=== PATIENT | male | born 1950 | race Caucasian/White ===

== ENCOUNTER 2017-10-11 08:36 | Outpatient (CLI) | payer MEDICARE, OTHER ==
--- NOTE | 2017-10-13 16:12 | PFT ---
PATIENT HISTORY: HEIGHT: WEIGHT: SMOKER: HOW LONG: PACKS PER DAY PRODUCTIVE COUGH: LUNG DISEASE: PHYSICIAN INTERPRETATION FINAL REPORT: Porcelain Enamel Laborer comments patient and good effort and cooperation FVC 3.47 (81%), FEV1 2.29 (79%), FEV1/FVC 0.64. TLC 5.77 (86%), RV 2.43 (99%). There is a reduction to the FEV1 and the FVC. The ratio is most consistent with obstructive profile. There is a significant improvement in the FVC (17%, 510 mL), and the FEV1 (22%, 420 mL) following administration of bronchodilator. Lung volumes including TLC and RV are normal. The FRC is minimally reduced. IMPRESSION: These pulmonary function studies are most consistent with mild obstructive lung disease with significant reversibility. Porcelain Enamel Laborer: SRINI Supervisor Core Drilling: SRINI LENTZ
== END 2017-10-11 08:37 | disposition home or self-care (01) ==
LOC: CP 08:36
PROVIDERS: ATTEND Family Medicine
DX: R06.2 Wheezing (principal)
CPT/HCPCS: 94060; 94727

== ENCOUNTER 2018-08-27 17:30 | Observation (INO) | payer MEDICARE, OTHER ==
[2018-08-27] MEDS ORDERED: methylPREDNISolone Sod Succ/PF 125 MG/2 ML VIAL ONE (17:44)
[2018-08-27] MEDS ORDERED: Water For Inject, Bacteriostat 30 ML ONE (17:45)
[2018-08-27 17:56] LABS: #Basophils 0.2 thou/uL (0.0-0.2); #Eosinphils 1.3 thou/uL (0.0-0.7); #Lymphocytes 2.3 thou/uL (1.20-3.40); #Monocytes 0.8 thou/uL (0.11-0.59); #Neutrophils 8.2 thou/uL (1.40-6.50); %Basophils 1.7 % (0.0-1.0); %Eosinophils 9.9 % (0.0-10.0); %Lymphocytes 17.9 % (21.0-51.0); %Monocytes 6.2 % (0.0-10.0); %Neutrophils 64.4 % (42.0-75.0); Hemoglobin 17.1 g/dL (14.0-18.0); Mean Corpuscular HGB CONC 34.2 g/dL (32.0-36.0); Mean Corpuscular Hemoglobin 31.7 pg (27.0-31.0); Mean Corpuscular Volume 92.6 fL (78.0-98.0); Platelet Count 251 thou/uL (130-400); RBC Distribution Width 12.5 % (11.5-14.5); Red Blood Cell (RBC) Count 5.41 mill/uL (4.70-6.10); White Blood Cell (WBC) Count 12.8 thou/uL (4.8-10.8)
[2018-08-27 18:12] LABS: ALT (SGPT) 25 U/L (8-55); AST (SGOT) 23 U/L (5-34); Albumin 4.7 g/dL (3.4-4.8); Alkaline Phosphatase 77 U/L (40-150); Anion Gap 16 mmol/L (10-20); BUN (Urea Nitrogen) 15 mg/dL (8.4-25.7); Bilirubin, Total 0.6 mg/dL (0.2-1.2); Calc. Creatinine Clearance 0 mL/min (70-130); Calcium 10.2 mg/dL (7.8-10.44); Carbon Dioxide 28 mmol/L (23-31); Chloride 103 mmol/L (98-107); Estimated GFR-MDRD 75; Globulin 3.2 g/dL (2.4-3.5); Glucose 103 mg/dL (80-115); Protein, Total 7.9 g/dL (5.8-8.1); Sodium 143 mmol/L (136-145)
[2018-08-27 18:39] LABS: CKMB 12.5 ng/mL (0-6.6)
--- NOTE | 2018-08-27 19:16 | RAD ---
CHEST ONE VIEW: Indication: 68-year-old male with dyspnea and COPD. Comparison: Two view chest radiograph, 10-03-17. FINDINGS: The lungs are clear. The heart size is normal. There are stable mild vascular calcifications involvin g the aortic arch. No pleural effusion is evident. No pneumothorax is identified. No acute osseous ab normality is demonstrated. IMPRESSION: No acute cardiopulmonary abnormality. POS: [facility]
[2018-08-27 21:40] VITALS: BMI 30.6
[2018-08-27] MEDS: methylPREDNISolone Sod Succ 40 MG VIAL IVP SCH (23:29)
[2018-08-27] MEDS ORDERED: methylPREDNISolone Acetate 40 mg/ml Vial IM SCH (23:59)
[2018-08-28] MEDS ORDERED: Acetaminophen 325 MG TAB PO PRN (00:54)
[2018-08-28] MEDS ORDERED: Ondansetron ODT 4 MG TAB PO PRN (00:54)
[2018-08-28] MEDS ORDERED: Calcium Carbonate 500 MG ChewTAB PO PRN (00:54)
[2018-08-28] MEDS ORDERED: Senokot S 8.6-50 MG TAB PO PRN (00:54)
[2018-08-28] MEDS ORDERED: Ondansetron PF 4 MG/2 ML Vial IVP PRN (00:54)
[2018-08-28] MEDS: Azithromycin 500 MG in Sodium Chloride 0.9% 250 ML 250 ML IVPB SCH (01:24)
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
[2018-08-28] MEDS: methylPREDNISolone Sod Succ 40 MG VIAL IVP SCH ×3 (05:11→17:48)
[2018-08-28] MEDS ORDERED: Diabetic Tussin 200 MG/10 ML UDCUP PO PRN (06:44)
[2018-08-28] MEDS: Famotidine 20 MG TAB PO SCH ×2 (08:59→20:49)
[2018-08-28] MEDS: guaiFENesin ER 600 MG TAB PO SCH ×2 (08:59→20:48)
[2018-08-28] MEDS: Aspirin 81 mg Enteric Coated Tablet PO SCH (09:00)
[2018-08-28] MEDS: Amlodipine 5 mg/Benazepril 10 mg CAP PO SCH (09:00)
[2018-08-28] MEDS: Mometasone/Formoterol 120 PUFF INHALER INH SCH (18:33)
[2018-08-28] MEDS ORDERED: Atorvastatin Calcium 20 MG TAB PO SCH (21:00)
[2018-08-29] MEDS: methylPREDNISolone Sod Succ 40 MG VIAL IVP SCH ×3 (00:01→12:17)
[2018-08-29] MEDS: Azithromycin 500 MG in Sodium Chloride 0.9% 250 ML 250 ML IVPB SCH (00:04)
[2018-08-29] MEDS: Mometasone/Formoterol 120 PUFF INHALER INH SCH (07:33)
[2018-08-29] MEDS: guaiFENesin ER 600 MG TAB PO SCH (08:21)
[2018-08-29] MEDS: Famotidine 20 MG TAB PO SCH (08:22)
[2018-08-29] MEDS: Aspirin 81 mg Enteric Coated Tablet PO SCH (08:22)
[2018-08-29] MEDS: Amlodipine 5 mg/Benazepril 10 mg CAP PO SCH (08:22)
[2018-08-29 15:49] VITALS: BP 137/71; TEMP 98.3
--- NOTE | 2018-08-30 05:02 | DIS ---
DATE OF ADMISSION: 08/27/2018 DATE OF DISCHARGE: 08/29/2018 ALLERGIES: NO KNOWN DRUG ALLERGIES. CHIEF COMPLAINT: Shortness of breath. FINAL DIAGNOSES: 1. Acute chronic obstructive pulmonary disease exacerbation, resolved. 2. Hypoxemia, improved. 3. Mild chronic obstructive pulmonary disease, diagnosed in September 2017. 4. Hypertension. 5. Hyperlipidemia. LABORATORY RESULTS: On 08/27/2018, white blood cell count 12.8, hemoglobin 17.1, hematocrit 50.1, platelet count 251. D-dimer less than 0.27. Sodium 143, potassium 4.0, anion gap 16, BUN 15, creatinine 0.99. GFR 75. Liver function tests within normal limits. Serial troponin 0.052 and 0.025 respectively. IMAGING RESULTS: Chest x-ray showed clear lung michaels. No acute cardiopulmonary abnormality. CONSULTATIONS: Dr. Andrade, who is a close family friend, was then informed of his admission. HOSPITAL COURSE: The patient is a pleasant 68-year-old male with past medical history significant for mild COPD which has been well maintained on his maintenance Combivent inhaler that he uses twice a day as well as his rescue inhaler, hypertension, and hyperlipidemia, who presented to the hospital with complaints of worsening shortness of breath, wheezing and cough. Symptoms initially began two weeks prior to his admission with what the patient describes as an upper respiratory tract infection. The patient states his cough and symptoms did improve, however, over the past 4 days prior to admission, his symptoms got progressively worse. He had a nonproductive cough, no fever; but when the patient was trying to meet his for lunch, he got to the front door, and felt that he absolutely could not breathe. He presented to the emergency room for further workup and treatment. His O2 saturation on arrival was 80% on room air. The patient was given DuoNebs along with IV Solu-Medrol, IV azithromycin, with significant improvement in his symptoms over the past 2 days. His cough has improved. He does report some mild dyspnea on exertion, however, denies any further wheezing. He denies any chest pain, nausea, or vomiting today. He denies any other complaints. The patient did desat to 88% with ambulation, and so supplemental home O2 has been arranged. His Combivent inhaler was exchanged for Dulera. PHYSICAL EXAMINATION: VITAL SIGNS: Blood pressure 137/71. The patient is afebrile, 98.3 degrees Fahrenheit. Pulse is 94. O2 saturation 95% on room air at rest, however, the patient did desaturate to 88% with ambulation. GENERAL: This is a well-appearing, mildly obese male, in no acute distress. He is breathing easily. HEENT: Atraumatic, normocephalic. Eye movement intact. Mucous membranes are moist. NECK: Supple. No lymphadenopathy. No carotid bruits. RESPIRATORY: Regular respiratory rate and pattern. No wheeze or rhonchi detected today. The patient does have overall decreased vesicular breath sounds. CARDIOVASCULAR: S1, S2. Regular rate and rhythm. No appreciable murmurs, rubs or gallops. GI: Soft, nontender. Positive bowel sounds. PERIPHERAL VASCULAR: No edema. +2 DP pulses bilaterally. MUSCULOSKELETAL: No joint effusion or swelling. NEUROLOGIC: Nonfocal. Cranial nerves 2 through 12 grossly intact. CONDITION AT DISCHARGE: Stable. DISCHARGE MEDICATIONS: 1. Albuterol sulfate inhaler p.r.n. 2. Amlodipine benazepril 10/20 one capsule p.o. daily. 3. Atorvastatin 20 mg p.o. at bedtime. 4. Aspirin 81 mg daily. 5. He will continue azithromycin 250 mg tablet for the next 3 days. 6. Guaifenesin 600 mg p.o. q.12. 7. The patient was also given prescription for a nebulizer machine along with ipratropium, albuterol sulfate nebulizer vials. 8. The patient's Combivent was changed to Dulera 120 aerosol, one puff inhalation b.i.d. DISCHARGE DISPOSITION: Home. PLAN: The patient will continue supplemental oxygen as needed with exertion, and pulmonary toilet to include p.r.n. breathing treatment, expectorant, and continuation of his antibiotic. He will follow up as an outpatient with Dr. Andrade and with his primary care physician. The findings of his testing and diagnoses have been discussed with the patient at length. All questions answered. Job ID: [id number]
== END 2018-08-29 18:32 | disposition home or self-care (01) ==
LOC: SCSER 17:30 → 2SW 21:36
PROVIDERS: ADMIT Internal Medicine; ATTEND Internal Medicine
DX: J44.1 Chronic obstructive pulmonary disease with (acute) exacerbation (principal); R09.02 Hypoxemia; I12.9 Hypertensive chronic kidney disease with stage 1 through stage 4 chronic kidney disease, or unspecified chronic kidney disease; N18.2 Chronic kidney disease, stage 2 (mild); E78.5 Hyperlipidemia, unspecified; R73.02 Impaired glucose tolerance (oral); R79.89 Other specified abnormal findings of blood chemistry; E66.9 Obesity, unspecified; Z68.30 Body mass index [BMI] 30.0-30.9, adult; Z79.899 Other long term (current) drug therapy; Z87.891 Personal history of nicotine dependence
CPT/HCPCS: 71045; 80053; 82550; 82553; 84484 ×2; 85025; 85379; 94640 ×6; 94760 ×2; 96365; 96366; 96375; 96376 ×3; 99285; G0378 ×2; 36415; 96374; J0456; J1030; J2920; J2930; J7050; J7620

== ENCOUNTER 2024-02-08 16:04 | Inpatient (IN) | payer MEDICARE ==
[~2024-02-08 16:04] MED LIST: Iopamidol-370 76% 500 ML MDV (1 ML CHARGE) ONE
[2024-02-08 17:04] LABS: #Basophils 0.07 10x3/uL (0.0-0.2); %Basophils 0.5 % (0.0-1.0); %Eosinophils 1.5 % (0.0-10.0); %Lymphocytes 9.2 % (21.0-51.0); %Monocytes 8.2 % (0.0-10.0); %Neutrophils 79.8 % (42.0-75.0); Hematocrit 33.3 % (42.0-52.0); Hemoglobin 11.3 g/dL (14.0-18.0); Mean Corpuscular HGB CONC 33.9 g/dL (32.0-36.0); Mean Corpuscular Hemoglobin 31.7 pg (27.0-31.0); Mean Corpuscular Volume 93.3 fL (78.0-98.0); Mean Platelet Volume 10.4 fL (7.4-10.4); Platelet Count 150 10x3/uL (130-400); RBC Distribution Width 13.2 % (11.5-14.5); Red Blood Cell (RBC) Count 3.57 mill/uL (4.70-6.10)
[2024-02-08 17:18] LABS: INR-International Normal Ratio 1.1; PTT 37.2 sec (22.9-36.1); Prothrombin Time 14.4 sec (12.0-14.7)
[2024-02-08 17:22] LABS: ALT (SGPT) 20 U/L (8-55); AST (SGOT) 21 U/L (5-34); Albumin 3.3 g/dL (3.4-4.8); Alkaline Phosphatase 64 U/L (40-110); Anion Gap 15 mmol/L (10-20); BUN (Urea Nitrogen) 27 mg/dL (8.4-25.7); Bilirubin, Total 1.5 mg/dL (0.2-1.2); Calc. Creatinine Clearance 0 mL/min (70-130); Calcium 8.8 mg/dL (7.8-10.44); Carbon Dioxide 24 mmol/L (23-31); Chloride 101 mmol/L (98-107); Estimated GFR 92; Globulin 3.3 g/dL (2.4-3.5); Glucose 116 mg/dL (83-110); Potassium 4.4 mmol/L (3.5-5.1); Protein, Total 6.6 g/dL (5.8-8.1); Sodium 136 mmol/L (136-145)
[2024-02-08 17:24] LABS: Troponin I 0.143 ng/mL (< 0.028)
[2024-02-08] MEDS ORDERED: Heparin 5,000 UNITS/ML VIAL ONE (18:33)
[2024-02-08] MEDS ORDERED: Heparin 25,000 units/D5W 500 ML ONE (18:33)
[2024-02-08] MEDS ORDERED: Acetaminophen 325 MG TAB PO PRN (20:10)
[2024-02-08] MEDS ORDERED: Ondansetron ODT 4 MG TAB PO PRN (20:10)
[2024-02-08] MEDS ORDERED: Ondansetron PF 4 MG/2 ML Vial IVP PRN (20:10)
[2024-02-08 21:00] LABS: Hematocrit 36.1 % (42.0-52.0); Hemoglobin 11.9 g/dL (14.0-18.0); Platelet Count 148 10x3/uL (130-400)
[2024-02-08 21:39] LABS: PTT Greater than 250.0 sec (22.9-36.1)
[2024-02-08] MEDS: Heparin 25,000 units/D5W 500 ML IVPB SCH (21:41)
[2024-02-08] MEDS ORDERED: Ipratropium/Albuterol 3 ML NEB NEB PRN (22:24)
[2024-02-08] MEDS: traMADol HCl 50 MG TAB PO PRN (22:45)
[2024-02-08] MEDS: Ipratropium/Albuterol 3 ML NEB NEB SCH (22:55)
[2024-02-09 00:58] VITALS: BMI 35.9
[2024-02-09 03:46] LABS: PTT 140.7 sec (22.9-36.1)
[2024-02-09] MEDS: Mometasone 100 MCG HFA INHALER (RT USE) INH SCH (06:57)
[2024-02-09] MEDS ORDERED: Non-Formulary Item 1 EACH (Fluticasone/Umeclidin/Vilanter [Trelegy Ellipta 200-62.5-25] 1 INH SCH (09:00)
[2024-02-09] MEDS: Cholecalciferol 1,000 UNITS (25 MCG) TAB PO SCH (10:02)
[2024-02-09] MEDS: Atorvastatin Calcium 20 MG TAB PO SCH (10:03)
[2024-02-09] MEDS ORDERED: Iopamidol 370 76% 100 ML VIAL ONE (10:34)
[2024-02-09] MEDS ORDERED: Heparin 10,000 UNITS/ 10 ML VIAL ONE (10:50)
[2024-02-09] MEDS ORDERED: fentaNYL 50 mcg/mL 1 mL Vial ONE ×2 (11:41→14:28)
[2024-02-09] MEDS ORDERED: Midazolam HCl 2 mg/2 ml Vial ONE (11:41)
[2024-02-09] MEDS ORDERED: Famotidine/PF 20 mg/2ml Vial ONE (12:00)
[2024-02-09] MEDS: Activase 2 MG VIAL CATH SCH (16:03)
[2024-02-09] MEDS: Sterile Water 10 ML VIAL IVP SCH ×2 (16:03)
[2024-02-09] MEDS: Activase 2 MG VIAL FS SCH (16:03)
[2024-02-09] MEDS: Docusate 100 MG CAP PO PRN (20:03)
[2024-02-09 20:57] LABS: PTT 235.1 sec (22.9-36.1)
[2024-02-10 04:36] LABS: #Basophils 0.07 10x3/uL (0.0-0.2); %Basophils 0.6 % (0.0-1.0); %Eosinophils 3.8 % (0.0-10.0); %Lymphocytes 12.9 % (21.0-51.0); %Neutrophils 71.7 % (42.0-75.0); Hematocrit 33.2 % (42.0-52.0); Hemoglobin 10.9 g/dL (14.0-18.0); Mean Corpuscular HGB CONC 32.8 g/dL (32.0-36.0); Mean Corpuscular Hemoglobin 30.9 pg (27.0-31.0); Mean Corpuscular Volume 94.1 fL (78.0-98.0); Mean Platelet Volume 10.1 fL (7.4-10.4); Platelet Count 144 10x3/uL (130-400); RBC Distribution Width 13.2 % (11.5-14.5); Red Blood Cell (RBC) Count 3.53 mill/uL (4.70-6.10)
[2024-02-10 04:59] LABS: Anion Gap 15 mmol/L (10-20); BUN (Urea Nitrogen) 19 mg/dL (8.4-25.7); Calc. Creatinine Clearance 132 mL/min (70-130); Calcium 8.7 mg/dL (7.8-10.44); Carbon Dioxide 29 mmol/L (23-31); Chloride 101 mmol/L (98-107); Estimated GFR 94; Glucose 98 mg/dL (83-110); Potassium 4.5 mmol/L (3.5-5.1); Sodium 140 mmol/L (136-145)
[2024-02-10] MEDS: Heparin 10,000 UNITS/ 10 ML VIAL SLOW IVP SCH (08:38)
[2024-02-10 14:00] LABS: PTT 176.4 sec (22.9-36.1)
[2024-02-10] MEDS: Polyethylene Glycol 3350 17 GM Packet PO PRN (15:18)
[2024-02-10] MEDS ORDERED: Melatonin 3 MG TAB PO PRN (15:27)
[2024-02-10] MEDS ORDERED: diphenhydrAMINE 25 MG CAP PO PRN (15:27)
[2024-02-10 20:47] LABS: Hematocrit 31.8 % (42.0-52.0); Hemoglobin 10.4 g/dL (14.0-18.0); Platelet Count 149 10x3/uL (130-400)
[2024-02-11 04:44] LABS: #Basophils 0.07 10x3/uL (0.0-0.2); %Basophils 0.7 % (0.0-1.0); %Eosinophils 5.5 % (0.0-10.0); %Lymphocytes 14.4 % (21.0-51.0); %Monocytes 9.7 % (0.0-10.0); %Neutrophils 68.4 % (42.0-75.0); Hematocrit 30.9 % (42.0-52.0); Hemoglobin 10.3 g/dL (14.0-18.0); Mean Corpuscular HGB CONC 33.3 g/dL (32.0-36.0); Mean Corpuscular Hemoglobin 30.8 pg (27.0-31.0); Mean Corpuscular Volume 92.5 fL (78.0-98.0); Mean Platelet Volume 10.1 fL (7.4-10.4); Platelet Count 147 10x3/uL (130-400); Red Blood Cell (RBC) Count 3.34 mill/uL (4.70-6.10)
[2024-02-11 05:10] LABS: Anion Gap 10 mmol/L (10-20); BUN (Urea Nitrogen) 14 mg/dL (8.4-25.7); Calc. Creatinine Clearance 141 mL/min (70-130); Calcium 8.5 mg/dL (7.8-10.44); Carbon Dioxide 31 mmol/L (23-31); Chloride 100 mmol/L (98-107); Estimated GFR 96; Glucose 116 mg/dL (83-110); Potassium 3.9 mmol/L (3.5-5.1); Sodium 137 mmol/L (136-145)
[2024-02-11] MEDS: Magnesium Citrate 300 ML BOT PO SCH (13:10)
[2024-02-11 16:13] VITALS: BP 130/63; TEMP 98.5
[2024-02-11] MEDS: Acetaminophen/Codeine 30-300mg Tablet PO PRN (19:56)
== END 2024-02-11 20:15 | disposition short-term general hospital (02) | DRG 272 ==
LOC: ERS 16:04 → 2NO 18:30
PROVIDERS: ADMIT Family Medicine; ATTEND Internal Medicine
PROC: 06CF3ZZ Extirpation of Matter from Right External Iliac Vein, Percutaneous Approach (ICD-10-PCS; principal; 2024-02-09)
PROC: 06CM3ZZ Extirpation of Matter from Right Femoral Vein, Percutaneous Approach (ICD-10-PCS; 2024-02-09)
PROC: 06C Lower Veins, Extirpation (ICD-10-PCS; 2024-02-09)
PROC: B51D1ZA Fluoroscopy of Bilateral Lower Extremity Veins using Low Osmolar Contrast, Guidance (ICD-10-PCS; 2024-02-09)
DX: I82.421 Acute embolism and thrombosis of right iliac vein (principal); I82.441 Acute embolism and thrombosis of right tibial vein; I82.411 Acute embolism and thrombosis of right femoral vein; I82.431 Acute embolism and thrombosis of right popliteal vein; J44.9 Chronic obstructive pulmonary disease, unspecified; I10 Essential (primary) hypertension; E78.5 Hyperlipidemia, unspecified; I35.0 Nonrheumatic aortic (valve) stenosis; F17.210 Nicotine dependence, cigarettes, uncomplicated; Z79.899 Other long term (current) drug therapy; Z98.890 Other specified postprocedural states; Z95.2 Presence of prosthetic heart valve
CPT/HCPCS: 36005; 36011; 36012; 36415; 37187; 37212; 37248; 37249; 71045; 74177; 75822; 75825; 76937; 80048; 80053; 84484; 85025; 85347; 85610; 85730; 93005; 93978; 94640; 96374; 99152; 99153; C1725; C1760; C1769; C1887; C1894; J1644; J2250; J3010; J3490; J7620; Q9967

== ENCOUNTER 2024-04-03 14:30 | Emergency (ER) | payer MEDICARE ==
[2024-04-03 15:03] LABS: #Basophils 0.09 10x3/uL (0.0-0.2); %Eosinophils 4.6 % (0.0-10.0); %Lymphocytes 22.3 % (21.0-51.0); %Neutrophils 61.8 % (42.0-75.0); Hematocrit 38.6 % (42.0-52.0); Hemoglobin 12.5 g/dL (14.0-18.0); Mean Corpuscular HGB CONC 32.4 g/dL (32.0-36.0); Mean Corpuscular Hemoglobin 28.4 pg (27.0-31.0); Mean Corpuscular Volume 87.7 fL (78.0-98.0); Mean Platelet Volume 10.4 fL (7.4-10.4); Platelet Count 153 10x3/uL (130-400); RBC Distribution Width 14.3 % (11.5-14.5)
[2024-04-03 15:20] LABS: ALT (SGPT) 15 U/L (8-55); AST (SGOT) 15 U/L (5-34); Albumin 3.8 g/dL (3.4-4.8); Alkaline Phosphatase 82 U/L (40-110); Anion Gap 12 mmol/L (10-20); BUN (Urea Nitrogen) 19 mg/dL (8.4-25.7); Bilirubin, Total 0.3 mg/dL (0.2-1.2); Calc. Creatinine Clearance 0 mL/min (70-130); Calcium 9.3 mg/dL (7.8-10.44); Carbon Dioxide 25 mmol/L (23-31); Chloride 107 mmol/L (98-107); Estimated GFR 91; Globulin 3.1 g/dL (2.4-3.5); Glucose 91 mg/dL (83-110); Potassium 3.8 mmol/L (3.5-5.1); Protein, Total 6.9 g/dL (5.8-8.1); Sodium 140 mmol/L (136-145)
== END 2024-04-03 16:50 | disposition home or self-care (01) ==
LOC: ERS 14:30
DX: R60.0 Localized edema (principal); I10 Essential (primary) hypertension; Z86.718 Personal history of other venous thrombosis and embolism; T81.329D Deep disruption or dehiscence of operation wound, unspecified, subsequent encounter; I25.10 Atherosclerotic heart disease of native coronary artery without angina pectoris; J44.9 Chronic obstructive pulmonary disease, unspecified
CPT/HCPCS: 11042; 36415; 80053; 85025